=== PATIENT | male | born 1980 | race Caucasian/White ===

== ENCOUNTER → 2017-06-04 08:31 | Outpatient (CLI) | payer OTHER, SELFPAY ==
[2017-06-04 10:48] LABS: AST(SGOT) 25 U/L (15-37); Alanine Aminotransfer ALT/SGPT 46 U/L (16-61); Alkaline Phosphatase 72 U/L (45-117); Anion Gap 10 (5-15); BUN 12 mg/dL (7-18); BUN/Creat Ratio 14.7 RATIO (10-20); Calcium,Total 8.9 mg/dL (8.5-10.1); Chloride 104 mmol/L (98-107); Creatinine, Serum 0.82 mg/dL (0.70-1.30); EST Glomerular Filtration Rate 112 mL/min (>60); Est Glom Filt Rate - Afr Amer 135 mL/min (>60); Glucose 89 mg/dL (74-106); Potassium 3.9 mmol/L (3.5-5.1); Sodium Level 139 mmol/L (136-145)
== END ==
PROVIDERS: Family Provider Family Medicine; PCP Family Medicine; Visit Provider Family Medicine
DX: I10 Essential (primary) hypertension (principal)
CPT/HCPCS: 36415; 80053

== ENCOUNTER → 2018-06-03 08:25 | Outpatient (CLI) | payer BC, SELFPAY ==
[2018-06-03 10:12] LABS: ALB/GLOB Ratio 1.3 RATIO (0.9-2.4); AST(SGOT) 25 U/L (15-37); Alanine Aminotransfer ALT/SGPT 51 U/L (16-61); Albumin, Serum 4.3 g/dL (3.2-5.0); Alkaline Phosphatase 78 U/L (45-117); Anion Gap 10 (5-15); BUN 18 mg/dL (7-18); BUN/Creat Ratio 21.7 RATIO (10-20); Chloride 107 mmol/L (98-107); Cholesterol 141 mg/dL (200); Creatinine, Serum 0.83 mg/dL (0.70-1.30); EST Glomerular Filtration Rate 110 mL/min (>60); Est Glom Filt Rate - Afr Amer 132 mL/min (>60); Globulin 3.4 g/dL (2.2-4.2); Glucose 90 mg/dL (74-106); High Density Lipoprotein 30 mg/dL; Potassium 4.1 mmol/L (3.5-5.1); Protein, Total 7.7 g/dL (6.4-8.2); Sodium Level 141 mmol/L (136-145); Triglycerides 85 mg/dL; Very Low Density Lipoprotein 17 mg/dL (5-40)
== END ==
PROVIDERS: Family Provider Family Medicine; PCP Family Medicine; Referring Provider Family Medicine; Visit Provider Family Medicine
DX: Z00.00 Encounter for general adult medical examination without abnormal findings (principal)
CPT/HCPCS: 36415; 80053; 80061

== ENCOUNTER → 2019-09-16 09:11 | Outpatient (CLI) | payer BC, SELFPAY ==
[2019-09-16 10:39] LABS: Vitamin D,25 Hydroxy 25.7 ng/mL
[2019-09-16 10:49] LABS: Anion Gap 5 (5-15); BUN 17 mg/dL (7-18); BUN/Creat Ratio 19.7 RATIO (10-20); Calcium,Total 9.2 mg/dL (8.5-10.1); Chloride 110 mmol/L (98-107); Cholesterol 158 mg/dL (200); Creatinine, Serum 0.86 mg/dL (0.70-1.30); EST Glomerular Filtration Rate 104 mL/min (>60); Est Glom Filt Rate - Afr Amer 125 mL/min (>60); Glucose 105 mg/dL (74-106); High Density Lipoprotein 33 mg/dL; Sodium Level 139 mmol/L (136-145); Triglycerides 81 mg/dL; Very Low Density Lipoprotein 16 mg/dL (5-40)
== END ==
PROVIDERS: PCP Family Medicine; Referring Provider Family Medicine; Visit Provider Family Medicine
DX: Z00.00 Encounter for general adult medical examination without abnormal findings (principal)
CPT/HCPCS: 36415; 80048; 80061; 82306

== ENCOUNTER → 2020-02-04 13:25 | Outpatient (CLI) | payer BC, SELFPAY ==
[2020-02-04 15:47] LABS: Thyroid Stim Hormone (TSH) 2.07 uIU/mL (0.358-3.74)
== END ==
PROVIDERS: PCP Family Medicine; Referring Provider Family Medicine; Visit Provider Family Medicine
DX: E66.9 Obesity, unspecified (principal)
CPT/HCPCS: 36415; 84443

== ENCOUNTER 2020-04-23 11:31 | Emergency (ER) | payer BC, SELFPAY ==
[2020-04-23 11:32] VITALS: BP 134/93; PULSE 98; RESP 16; TEMP 35.8; O2SAT 99; BMI 37.3
--- NOTE | 2020-04-23 11:52 | ED.VIS.GEN ---
History of Present Illness Chief Complaint: Bite Narrative: Patient is a 39-year-old male who presents with a dog bite to the left hand. This is his past. Family estimates the dog's weight at 110 to 140 pounds. It occurred about 2 hours before presentation here to the emergency department. Patient is uncertain of his last tetanus immunization. He has small puncture wounds to the back of his hand and a laceration to the palm. He was initially seen at the urgent care but due to a lot of pain at the base of the hand it was sent over for for further evaluation. He otherwise has recently been well. He is not diabetic. No numbness tingling or weakness. Past Medical History - Allergies and Home Meds Allergies/Adverse Reactions: Allergies No Known Allergies Allergy (Verified 04/23/20 11:32) Primary Care Physician: Tay Medel MD [Primary Care Provider] - Past Medical History: - - Hypertension, hyperlipidemia, GERD Review of Systems All systems negative except as indicated General: Denies: Fever Eyes: Denies: Visual changes - bilaterally ENT: Denies: Bilateral ear pain Cardiovascular: Denies: Chest pain Respiratory: Denies: Dyspnea Musculoskeletal: Reports: Extremity Pain Skin: Denies: Rash Neurological: Denies: Headache Hematologic: Denies: Easy bruising Allergy: Denies: Uticaria Physical Exam Vital Signs/Narrative: Vital Signs Temp Pulse Resp BP Pulse Ox 04/23/20 11:32 96.4 F L 98 16 134/93 H 99 Inital Vital Signs reviewed: Yes General: Well nourished Head: Normocephalic Eyes: EOMI ENT: Moist mucous membranes Neck: Supple Cardiovascular: Regular rate Respiratory: No distress Extremities: - - Patient has 2 small puncture wounds on the back of the left hand. Center of the palm there is an approximately 2 cm laceration. This is not gaping. No active bleeding. Patient does have tenderness at thenar eminence no bony deformity brisk capillary refill normal sensation normal motor function Skin: Normal color Neurological: Alert Psychological: Normal affect Diagnostic/Tx/Re-eval Impressions Hand X-Ray 04/23/20 11:55 IMPRESSION: Unremarkable x-ray examination of the hand. Electronically Signed: Javon Jackson MD at 12:17 EST Tel , Service support , 04/23/20 11:55 Hand Min 3 Views [RAD] Stat - Medical Decision Making 3 view left hand x-ray was obtained. On my interpretation the shows no fracture. This was read by radiology who agrees. Wounds were cleansed and dressed by nursing staff. Patient's tetanus immunization was updated. Patient prescribed prophylactic Augmentin. He was advised on wound care. He understands to return for new or worsening symptoms and was advised on signs and symptoms to monitor for and the patient was discharged. ED Disposition - Plan for ED Patient: Disposition: Home or Assisted Living Diagnosis: Dog bite, hand Instructions: ED Dog Bite Prescriptions: Amox/Clavulanate Tablet [Augmentin Tablet] 875 mg PO Q12H #20 tab Transmission Status: Pending to [id number] Referrals: Tay Medel MD [Primary Care Provider] -
--- NOTE | 2020-04-23 11:55 | RAD_ITS ---
STUDY: X-RAY - LEFT HAND REASON FOR EXAM: Male, 39 years old. Dog bite to left hand TECHNIQUE: 3 view(s) of the hand. COMPARISON: None. FINDINGS: Normal radiocarpal articulation. Normal distal radioulnar joint. Normal visualized carpal bones. Normal carpal articulations Normal carpometacarpal articulation of the thumb. Normal second through fifth carpometacarpal joints. Normal metacarpi. Normal metacarpophalangeal joint of the thumb. Normal interphalangeal joint of the thumb. Normal proximal and distal phalanges of the thumb. Normal metacarpophalangeal joints of the second through fifth fingers. Normal proximal and distal interphalangeal joints of the second through fifth fingers. Normal phalanges of the second through fifth fingers. Focal sclerosis of the distal phalanx of the third finger. The soft tissue structures are unremarkable. RAD/Hand Min 3 Views IMPRESSION: Unremarkable x-ray examination of the hand. Electronically Signed: Javon Jackson MD at 12:17 EST Tel , Service support ,
[2020-04-23 12:12] VITALS: RESP 18
[2020-04-23] MEDS: Diphth,Pertuss(Acell),Tet Vac 0.5 ML Vial IM (12:16)
[2020-04-23 12:32] VITALS: RESP 18
== END 2020-04-23 12:42 | disposition home or self-care (01) ==
PROVIDERS: Emergency Provider Emergency Medicine; PCP Family Medicine
DX: S61.452A Open bite of left hand, initial encounter (principal); W54.0XXA Bitten by dog, initial encounter
CPT/HCPCS: 73130; 90715; 96372; 99283

== ENCOUNTER → 2020-06-19 06:36 | Outpatient (CLI) | payer BC, SELFPAY ==
--- NOTE | 2020-06-21 09:13 | STRESSREP_ITS ---
Stress Test Report Date: 06/19/20 Procedure: Exercise tolerance test/imaging study Indications: chest pain Consent: Per the patient Procedure: The patient exercised on a Jose protocol for 7 minutes and 12 seconds achieving a peak heart rate of 176 bpm (98% predicted maximal heart rate) with a peak blood pressure 180/72 mmHg and a peak MET capacity of 8.8 METs. The baseline ECG demonstrated normal sinus rhythm. The peak exercise ECG demonstrated sinus tachycardia with no significant ischemic changes. EKG during recovery revealed no significant ischemic changes [There were no cardiac dysrhythmias pretest, during exercise, or recovery]. The functional capacity was considered normal for age. There was [no complaint of chest discomfort during exercise or recovery]. The examination was discontinued secondary to shortness of breath. Impression: 1. Technically adequate (percent predicted maximal heart rate greater than 85%) exercise tolerance test 2. Stress test is negative for exercise-induced EKG changes of ischemia 3. The test test is negative for exercise-induced chest pain 4. Functional capacity is normal for age 5. Nuclear images pending Myocardial perfusion imaging study: Technique: The patient was injected with 9.7 mCi of technetium 99m Cardiolite and subsequently rest SPECT Cardiolite nuclear imaging was obtained in the horizontal long, vertical long, and short axis views. The patient exercised on a Jose protocol. Please see above for details. The patient was injected with 32.8 mCi of technetium 99m Cardiolite and subsequently stress SPECT Cardiolite nuclear imaging was obtained in the horizontal long, vertical long, and short axis views. A gated Cardiolite study at peak stress was obtained. Interpretation: Rest and stress SPECT Cardiolite nuclear imaging status post realignment, normalization, and attenuation correction, demonstrates normal myocardial radioisotope uptake. The gated Cardiolite study demonstrates no significant regional wall motion abnormalities. The reported LVEF is greater than 70%. Impression: 1. There is no evidence of significant ischemia or infarction. 2. The gated Cardiolite study reports an LVEF of greater than 70%. This note was generated with [employer] software. It may contain incorrect words, spelling, and punctuation that were not noted in checking the note before signing.
== END ==
PROVIDERS: PCP Family Medicine; Referring Provider Family Medicine; Visit Provider Family Medicine
DX: R07.9 Chest pain, unspecified (principal)
CPT/HCPCS: 78452; 93017; A9500; A4216

== ENCOUNTER 2020-07-22 12:58 | Emergency (ER) | payer BC, SELFPAY ==
[2020-07-22 12:59] VITALS: BP 143/7; PULSE 120; RESP 18; TEMP 36.4; O2SAT 95; BMI 37.1
--- NOTE | 2020-07-22 13:28 | ED.VIS.LOWEX ---
HPI History of Present Illness Chief Complaint: Lower Extremity Injury Detail of Chief Complaint: Patient with right calf pain at started today Informant: patient Occured/Mechanism Comment: Patient believes that he may have jumped up to cheer winning a soccer game when he had sudden onset of pain. 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 Patient thinks that he may have jumped up to celebrate and its possible someone may of kicked him in the right calf because it felt like somebody kicked him in the calf. Patient now having a hard time walking and bearing weight secondary to pain. PFSH PFSH Home Medications amoxicillin-pot clavulanate 875 mg PO Q12H #20 tab 04/23/20 [Rx Last Taken Unknown] Allergy/AdvReac Type Severity Reaction Status Date / Time No Known Allergies Allergy Verified 07/22/20 12:59 Social History Smoking Status: Never smoker ROS ROS ED Constitutional Constitutional ED: Reports systems reviewed and no addt'l complaints, except as documented; Denies body ache(s), change in weight or chills Eyes Eyes: Denies acute decrease in peripheral vision, change in vision, double vision or loss of vision ENT ENT ED: Reports none; Denies ear pain, lip swelling, loss taste/smell, neck pain, otalgia or sore throat Cardiovascular Cardiovascular: Reports none; Denies abdominal pain, chest pain with activity, leg edema, lightheadedness, palpitations, rapid heart rate or syncope Respiratory/Chest Respiratory/Chest: Reports none; Denies change in mental status, dry cough, dyspnea, hemoptysis, shortness of breath at rest or shortness of breath with exertion Gastrointestinal Gastrointestinal: Reports none; Denies abdominal pain, change in stool character, diarrhea, hematemesis, hematochezia, melena, rectal bleeding or vomiting Genitourinary Genitourinary ED: Reports none; Denies abdominal discomfort, anuria, dysuria, genital pain or polyuria Musculoskeletal Musculoskeletal: Reports none and other Details: Right calf pain ; Denies arthralgias, back pain, difficulty walking, extremity pain, muscle weakness or myalgias Integumentary Reports none; Denies abscess or rash Neurologic Neurologic: Reports none; Denies abnormal gait, confusion, focal weakness, frequent falls, headache(s), loss of vision, numbness, paresthesias, radicular pain, vertigo or weakness Psychiatric Psychiatric: Reports systems reviewed and no addt'l complaints, except as documented and none; Denies behavioral changes, confusion, difficulty concentrating, hallucinations, suicidal ideation, tactile hallucinations or visual hallucinations Endocrine Endocrinology: Denies none, cold intolerance, excessive sweating, fatigue or heat intolerance Hematologic/Lymphatic Hematologic/Lymphatic: Reports none; Denies anemia, easy bleeding or easy bruising Allergic/Immunologic Allergic/Immunologic ED: Denies as per HPI, none, lip swelling, mouth swelling, throat swelling, tongue swelling or hives EXAM Physical Exam Const Vital Signs: 07/22/20 12:59 Temperature 97.5 F L Temperature Source Temporal Pulse Rate 120 H Respiratory Rate 18 Blood Pressure 143/7 H Blood Pressure Mean 52 Pulse Ox 95 Oxygen Delivery Method Room Air Positive well nourished and well developed General Appearance ED: well developed and NAD HEENT Reports TM's clear and moist mucous membranes normocephalic and atraumatic; Negative for trauma or tenderness Tympanic Membrane ED: Yes TM's clear Eyes PERRL and EOMs intact bilaterally General Eye ED: Negative for pale conjunctiva or scleral icterus Neck no lymphadenopathy, supple and no JVD General: Negative for tenderness Chest Wall inspection of chest normal and palpation of chest normal Chest: Negative for tenderness Resp normal respiratory effort and clear to auscultation bilaterally Effort and Inspection: Negative for respiratory distress or pain with movement Auscultation: Negative for rhonchi, wheezes or diminished lung sounds Cardio regular rate, regular rhythm, S1 normal heart sound, S2 normal heart sound and no murmurs Peripheral Pulses: pulses 2+ throughout GI normal to inspection, nondistended, normoactive bowel sounds, soft to palpation, non-tender, non-distended and no masses Back/Spine no CVA tenderness and no thoracic nor lumbar tenderness Extremity Extremity Narrative: Patient presents to the emergency department with tenderness over the right calf. No significant swelling noted. There is no ecchymosis or bruising. Patient has a negative Foy's test. I do not palpate any defect in the Achilles tendon. Patient does have some mid posterior calf tenderness that reproduces his pain. He has no bony tenderness over the tibia or fibula. Patient has normal range of motion at the knee and ankle. He is neurovascular intact. General Extremety ED: Negative for edema General Extremity: Negative for edema Neuro oriented x3, CN's II-XII intact bilaterally, no sensory deficits noted and gait normal Sensorium / Orientation: awake, alert, oriented to person, oriented to place and oriented to time Motor Exam: strength 5/5 throughout and strength abnormal Psych mental status grossly normal Skin no rashes or lesions noted and no wounds MDM MDM MDM Narrative Medical decision making narrative: I do not feel patient requires any type of imaging. I suspect he likely has a muscle strain of his calf. I do not feel he has an Achilles injury. Patient will be given crutches and an Geovani wrap and referral to orthopedics for follow-up. Discharge Plan Triage Chief Complaint: Lower Extremity Injury ED Provider: Terrie Castillo Dx/Rx/DC Orders Clinical Impression: Strain of calf muscle Instructions: ED Muscle Strain, Extremity Prescriptions: No Action amoxicillin-pot clavulanate 875 MG tablet 875 mg PO Q12H Qty: 20 RF: 0 Primary Care Provider: Tay Medel Referrals: Ehsan Alfaro DO [STAFF PHYSICIAN] - 3-5 Days Tay Medel MD [Primary Care Provider] -
== END 2020-07-22 13:55 | disposition home or self-care (01) ==
LOC: ED 13:36
PROVIDERS: Emergency Provider Emergency Medicine; PCP Family Medicine
DX: S86.911A Strain of unspecified muscle(s) and tendon(s) at lower leg level, right leg, initial encounter (principal); X58.XXXA Exposure to other specified factors, initial encounter
CPT/HCPCS: 99283

== ENCOUNTER → 2020-10-04 09:09 | Outpatient (CLI) | payer BC, SELFPAY ==
[2020-10-04 10:58] LABS: Anion Gap 5 (5-15); BUN 17 mg/dL (7-18); BUN/Creat Ratio 19.5 RATIO (10-20); Calcium,Total 8.7 mg/dL (8.5-10.1); Chloride 107 mmol/L (98-107); Cholesterol 145 mg/dL (200); Creatinine, Serum 0.87 mg/dL (0.70-1.30); EST Glomerular Filtration Rate 102 mL/min (>60); Est Glom Filt Rate - Afr Amer 123 mL/min (>60); Glucose 99 mg/dL (74-106); High Density Lipoprotein 30 mg/dL; Potassium 4.3 mmol/L (3.5-5.1); Sodium Level 141 mmol/L (136-145); Triglycerides 143 mg/dL; Very Low Density Lipoprotein 29 mg/dL (5-40)
== END ==
PROVIDERS: PCP Family Medicine; Referring Provider Family Medicine; Visit Provider Family Medicine
DX: I10 Essential (primary) hypertension (principal)
CPT/HCPCS: 36415; 80048; 80061

== ENCOUNTER 2021-04-11 08:30 | Outpatient (CLI) | payer BC, SELFPAY ==
[2021-04-11 10:39] LABS: Anion Gap 8 (5-15); BUN 14 mg/dL (7-18); BUN/Creat Ratio 16.2 RATIO (10-20); Chloride 108 mmol/L (98-107); Cholesterol 149 mg/dL (200); Creatinine, Serum 0.86 mg/dL (0.70-1.30); EST Glomerular Filtration Rate 103 mL/min (>60); Est Glom Filt Rate - Afr Amer 124 mL/min (>60); Glucose 104 mg/dL (74-106); High Density Lipoprotein 32 mg/dL; Potassium 3.9 mmol/L (3.5-5.1); Sodium Level 139 mmol/L (136-145); Triglycerides 104 mg/dL; Very Low Density Lipoprotein 21 mg/dL (5-40)
== END 2021-04-11 23:59 | disposition home or self-care (01) ==
LOC: MFPLAB 08:32
PROVIDERS: PCP Family Medicine; Referring Provider Family Medicine; Visit Provider Family Medicine
DX: E78.00 Pure hypercholesterolemia, unspecified (principal); I10 Essential (primary) hypertension
CPT/HCPCS: 36415; 80048; 80061

== ENCOUNTER → 2021-10-12 | Outpatient (CLI) | payer BC, SELFPAY ==
[2021-10-12 17:54] LABS: Anion Gap 6 (5-15); BUN 10 mg/dL (7-18); BUN/Creat Ratio 11.4 RATIO (10-20); Calcium,Total 9.1 mg/dL (8.5-10.1); Chloride 104 mmol/L (98-107); Cholesterol 150 mg/dL (200); Creatinine, Serum 0.88 mg/dL (0.70-1.30); EST Glomerular Filtration Rate 101 mL/min (>60); Est Glom Filt Rate - Afr Amer 122 mL/min (>60); Glucose 88 mg/dL (74-106); High Density Lipoprotein 31 mg/dL; Potassium 3.6 mmol/L (3.5-5.1); Sodium Level 137 mmol/L (136-145); Triglycerides 136 mg/dL; Very Low Density Lipoprotein 27 mg/dL (5-40)
== END | disposition home or self-care (01) ==
LOC: MFPLAB 15:31
PROVIDERS: PCP Family Medicine; Referring Provider Family Medicine; Visit Provider Family Medicine
DX: I10 Essential (primary) hypertension (principal)
CPT/HCPCS: 36415; 80048; 80061

== ENCOUNTER 2022-07-12 04:32 | Emergency (ER) | payer OTHER, SELFPAY ==
[2022-07-12 04:33] VITALS: BP 144/90; PULSE 81; RESP 18; TEMP 36.6; O2SAT 98; BMI 38.2
--- NOTE | 2022-07-12 04:47 | CT_ITS ---
EXAM: CT ABDOMEN AND PELVIS WITHOUT INTRAVENOUS CONTRAST CLINICAL INDICATION: Kidney Stone TECHNIQUE: Helically acquired images were obtained of the abdomen and pelvis without intravenous contrast. This CT exam was performed using one or more of the following dose reduction techniques: automated exposure control, adjustment of the mA and/or kV according to patient size, and/or use of iterative reconstruction technique. COMPARISON: No relevant prior studies available. FINDINGS: LOWER THORAX: Unremarkable. Lung bases are clear. No cardiomegaly. No significant pericardial effusion. ABDOMEN: LIVER: Hepatomegaly with fatty infiltration. GALLBLADDER AND BILE DUCTS: Unremarkable. No calcified gallstones. No gallbladder distention or wall edema. No intra- or extrahepatic biliary ductal dilation. PANCREAS: Unremarkable. No focal cystic mass. SPLEEN: Unremarkable. Normal size without focal cystic or solid mass. ADRENALS: Unremarkable. No nodules. KIDNEYS AND URETERS: Small nonobstructing stones in the kidneys, the largest measuring 4 mm on the left. Normal renal size and position. STOMACH AND BOWEL: Unremarkable. No stomach or bowel distention. No focal inflammatory change. PELVIS: APPENDIX: The appendix is normal. BLADDER: Unremarkable. REPRODUCTIVE: Unremarkable as visualized. No mass. ABDOMEN and PELVIS: INTRAPERITONEAL SPACE: Unremarkable. No ascites or other fluid collection. No free air. BONES/JOINTS: Unremarkable. No suspicious lytic or blastic abnormality. SOFT TISSUES: Unremarkable. No discrete abdominal or pelvic wall hernia. VASCULATURE: Unremarkable. Abdominal aorta is non-dilated. LYMPH NODES: Unremarkable. No enlarged lymph nodes. CT/Abdomen/Pelvis without Cont IMPRESSION: 1. Small nonobstructing stones in the kidneys, the largest measuring 4 mm on the left. No ureteral stone or renal obstruction. 2. Hepatomegaly with fatty infiltration. Electronically Signed: Bruce Aguero MD at 5:50 EDT ,
--- NOTE | 2022-07-12 04:47 | EX.ED.DYSGE1 ---
HPI History of Present Illness Chief Complaint: Flank Pain Informant: patient Onset/Context/Timing Onset: Today Context: Sudden Onset Timing: Intermittent Current Severity: Mild Maximum Severity: Severe Narrative Narrative: Patient presents with intermittent left flank pain for the last 4 hours. He states he was woken from sleep around 3 AM with left flank pain. He William urinated and had a bowel movement. Just before he went back to bed he had severe pain again. Pain has been fluctuating since that time. He did take 2 [id number] tabs of ibuprofen prior to arrival. [facility] Medical History Hyperlipemia Hypertension Home Medications atorvastatin 10 mg tablet 10 mg PO QHS 07/12/22 [History Last Taken Unknown] lisinopril 20 mg tablet 20 mg PO QHS 07/12/22 [History Last Taken Unknown] Allergy/AdvReac Type Severity Reaction Status Date / Time No Known Allergies Allergy Verified 07/12/22 04:36 Social History Smoking Status: Never smoker ROS ROS ED Constitutional Constitutional ED: Denies chills or fever(s) Eyes Eyes: Denies discharge from eye(s) ENT ENT ED: Denies discharge from eye(s), rhinorrhea or sore throat Cardiovascular Cardiovascular: Denies chest pain Respiratory/Chest Respiratory/Chest: Denies cough or dyspnea Gastrointestinal Gastrointestinal: Reports abdominal pain, nausea and vomiting Genitourinary Genitourinary ED: Reports urinary frequency; Denies difficulty urinating or dysuria Musculoskeletal Musculoskeletal: Reports back pain; Denies extremity pain Integumentary Denies Abrasions or rash Neurologic Neurologic: Denies headache(s) or weakness Psychiatric Psychiatric: Denies anxiety or depression Allergic/Immunologic Allergic/Immunologic ED: Denies lip swelling or urticaria EXAM Physical Exam Const Vital Signs: 07/12/22 04:33 Temperature 97.8 F Temperature Source Temporal Pulse Rate 81 Respiratory Rate 18 Blood Pressure 144/90 H Blood Pressure Mean 108 Pulse Ox 98 Oxygen Delivery Method Room Air Positive well nourished and well developed General Appearance ED: well developed HEENT Reports normocephalic and head/scalp atraumatic Eyes PERRL and EOMs intact bilaterally Neck supple Chest Wall inspection of chest normal and palpation of chest normal Resp normal respiratory effort and clear to auscultation bilaterally Cardio regular rate and regular rhythm GI non-tender Auscultation: hypoactive bowel sounds Palpation: soft Back/Spine General Back: CVA tenderness left Extremity normal to inspection Neuro oriented x3 and no sensory deficits noted Sensorium / Orientation: alert Motor Exam: strength 5/5 throughout Psych mental status grossly normal Skin no rashes or lesions noted MDM MDM MDM Narrative Medical decision making narrative: Patient was given morphine, Toradol, Zofran, IV fluids. Labwork obtained to evaluate for leukocytosis, anemia, and electrolyte derangement. Urinalysis obtained to evaluate for infection/hematuria. CT flank obtained to evaluate for kidney stone. Lab Data Attestation: I reviewed the patient's lab results. Labs: Laboratory Results - last 24 hr 07/12/22 07/12/22 07/12/22 04:43 04:43 05:05 WBC 13.1 H RBC 5.28 Hgb 15.9 Hct 46.8 MCV 88.6 MCH 30.1 MCHC 34.0 RDW Std Deviation 42.5 RDW Coeff of July 13.1 Plt Count 292 MPV 9.5 Immature Gran % (Auto) 0.700 Neut % (Auto) 69.4 Lymph % (Auto) 20.0 Bent % (Auto) 8.6 Eos % (Auto) 0.7 Baso % (Auto) 0.6 Absolute Neuts (auto) 9.1 H Absolute Lymphs (auto) 2.61 Nucleated RBC % 0 Sodium 138 Potassium 4.1 Chloride 106 Carbon Dioxide 25.0 Anion Gap 7 BUN 17 Creatinine 1.04 Estim Creat Clear Calc 82.65 Est GFR (MDRD) Af Amer 100 Est GFR (MDRD) Non-Af 83 BUN/Creatinine Ratio 16.3 Glucose 137 H Calcium 9.5 Urine Color Yellow Urine Clarity Clear Urine pH 5.0 Ur Specific [place] 1.025 Urine Protein 30 H Urine Glucose (UA) Normal Urine Ketones Negative Urine Occult Blood 250 H Urine Nitrite Negative Urine Bilirubin Negative Urine Urobilinogen Normal Ur Leukocyte Esterase 25 H Urine RBC 0-5 SEEN Urine WBC 0-5 SEEN Ur Squamous Epith Cells 0 SEEN Urine Bacteria RARE Urine Mucus 1+ Radiography Diagnostic Testing: Clinical Impression(s) from Imaging Studies Abdomen/Pelvis CT 07/12/22 04:47 IMPRESSION: 1. Small nonobstructing stones in the kidneys, the largest measuring 4 mm on the left. No ureteral stone or renal obstruction. 2. Hepatomegaly with fatty infiltration. Electronically Signed: Bruce Aguero MD at 5:50 EDT , Treatment and Re-Evaluation :: CBC reveals white count of 13.1 with 69% neutrophils. Chemistry studies unremarkable with normal renal function. Urinalysis does reveal 250 of blood with 0-5 RBCs. No evidence of infection. It is noted that when the patient gave his urine sample a small kidney stone was passed. CT flank at this time reveals no evidence of ureteral stone. He does have stones noted in both kidneys. On repeat evaluation patient is resting comfortably. Test results are discussed with him. He will use ibuprofen as needed for any remaining ureteral spasm that he may have over the next day or so. He will be given Dr. Hatch's number for follow-up as needed. Discharge Plan Triage Chief Complaint: Flank Pain ED Provider: Manjula Caraballo Dx/Rx/DC Orders Clinical Impression: Kidney stones Instructions: ED Kidney Stone, Passed Prescriptions: No Action atorvastatin 10 mg tablet 10 mg PO QHS lisinopril 20 mg tablet 20 mg PO QHS Label Comments: TAKE 1 TABLET BY MOUTH EVERY DAY Primary Care Provider: Tay Medel Referrals: Demetris Hatch MD [Med Staff - Active Staff] - As Needed Tay Medel MD [Primary Care Provider] - Disposition Disposition: Home, Self Care
[2022-07-12 04:58] LABS: Absolute Lymphocyte Count 2.61 X10^3/uL (0.83-4.51); Absolute Neutrophil Count 9.1 X10^3/uL (2.0-7.7); Basophil# 0.08 X10^3/uL; Basophil% 0.6 % (0-1); Eosinophil# 0.09 X10^3/uL; Eosinophils% 0.7 % (0-5); Hematocrit 46.8 % (40-54); Hemoglobin 15.9 g/dL (13.0-16.5); Lymphocyte # 2.61 X10^3/ul (0.83-4.51); Mean Corpuscular Hgb 30.1 pg (27.0-32.0); Mean Corpuscular Volume 88.6 fL (80-94); Mean Platelet Vol. 9.5 fl (6.2-12.0); Monocyte# 1.12 X10^3/uL; Monocyte% 8.6 % (0-10); NRBC Flagged by Analyzer 0 % (0-5); Neutrophil # 9.08 X10^3/uL (2.7-7.7); Neutrophil % 69.4 % (47-70); Platelet Count 292 K/mm3 (150-450); RBC Distribution Width CV 13.1 % (11.6-14.6); RBC Distribution Width SD 42.5 fl (35.1-43.9); Red Blood Count 5.28 M/mm3 (4.6-6.2); White Blood Count 13.1 K/mm3 (4.4-11.0)
[2022-07-12] MEDS: 0.9% Normal Saline 1,000 ML 250 ML IV (04:58)
[2022-07-12] MEDS: Ondansetron 4 MG/2 ML Vial IV (04:58)
[2022-07-12] MEDS: Ketorolac 15 MG/ML Vial IV (04:59)
[2022-07-12] MEDS: Morphine 4 MG/ML Syringe IV (05:00)
[2022-07-12 05:12] LABS: Squamous Epithelial Cells - UA 0 SEEN /hpf (0-5)
[2022-07-12 05:13] LABS: Color, Urine Yellow (Yellow); Glucose, Dipstick Normal (Normal); Ketone-Dipstick Negative (Negative); Leukocyte Esterase-Dipstick 25 /ul (Negative); Nitrite-Dipstick Negative (Negative); Occult Blood-Urine 250 /ul (Negative); Protein-Dipstick 30 mg/dl (Negative); Specific Gravity, Urine 1.025 (1.002-1.030); Urine Bilirubin Dipstick Negative (Negative); Urine Clarity Clear (Clear); Urine Urobilinogen Normal (Normal)
[2022-07-12 05:20] LABS: Bacteria RARE /hpf (None Seen); Mucous, Urine 1+ /hpf (<or=2+); Red Blood Cells-Urine 0-5 SEEN /hpf (0-5); White Blood Cells 0-5 SEEN /hpf (0-5)
[2022-07-12 05:22] LABS: Anion Gap 7 (5-15); BUN 17 mg/dL (7-18); BUN/Creat Ratio 16.3 RATIO (10-20); Calcium,Total 9.5 mg/dL (8.5-10.1); Chloride 106 mmol/L (98-107); Creatinine, Serum 1.04 mg/dL (0.70-1.30); EST Glomerular Filtration Rate 83 mL/min (>60); Est Glom Filt Rate - Afr Amer 100 mL/min (>60); Estimated Creatinine Clearance 82.65 ml/min; Glucose 137 mg/dL (74-106); Potassium 4.1 mmol/L (3.5-5.1); Sodium Level 138 mmol/L (136-145)
[2022-07-12 06:08] VITALS: PULSE 84; RESP 18; O2SAT 98
== END 2022-07-12 06:08 | disposition home or self-care (01) ==
PROVIDERS: Emergency Provider Emergency Medicine; PCP Family Medicine; Visit Provider Emergency Medicine
DX: N20.0 Calculus of kidney (principal); I10 Essential (primary) hypertension; E78.5 Hyperlipidemia, unspecified; Z79.899 Other long term (current) drug therapy
CPT/HCPCS: 74176; 80048; 81001; 85025; 96361; 96374; 96375; 99282; J7030; A4216; J2405

== ENCOUNTER → 2022-10-23 | Outpatient (CLI) | payer OTHER, SELFPAY ==
[2022-10-23 11:03] LABS: AST(SGOT) 25 U/L (15-37); Alanine Aminotransfer ALT/SGPT 60 U/L (16-61); Albumin, Serum 3.8 g/dL (3.2-5.0); Alkaline Phosphatase 77 U/L (45-117); Anion Gap 8 (5-15); BUN 12 mg/dL (7-18); BUN/Creat Ratio 14.5 RATIO (10-20); Chloride 104 mmol/L (98-107); Cholesterol 152 mg/dL (200); Creatinine, Serum 0.83 mg/dL (0.70-1.30); EST Glomerular Filtration Rate 107 mL/min (>60); Est Glom Filt Rate - Afr Amer 130 mL/min (>60); Glucose 106 mg/dL (74-106); High Density Lipoprotein 31 mg/dL; Potassium 3.9 mmol/L (3.5-5.1); Protein, Total 7.8 g/dL (6.4-8.2); Sodium Level 137 mmol/L (136-145); Thyroid Stim Hormone (TSH) 1.98 uIU/mL (0.358-3.74); Triglycerides 119 mg/dL; Very Low Density Lipoprotein 24 mg/dL (5-40)
== END | disposition home or self-care (01) ==
LOC: MFPLAB 08:48
PROVIDERS: PCP Family Medicine; Visit Provider Family Medicine
DX: Z00.00 Encounter for general adult medical examination without abnormal findings (principal); E66.9 Obesity, unspecified
CPT/HCPCS: 36415; 80053; 80061; 84403; 84443

== ENCOUNTER → 2023-10-23 | Outpatient (CLI) | payer OTHER, SELFPAY ==
[2023-10-23 11:33] LABS: ALB/GLOB Ratio 0.9 RATIO (0.9-2.4); AST(SGOT) 24 U/L (15-37); Alanine Aminotransfer ALT/SGPT 54 U/L (16-61); Albumin, Serum 3.9 g/dL (3.2-5.0); Alkaline Phosphatase 76 U/L (45-117); Anion Gap 9 (5-15); BUN 14 mg/dL (7-18); BUN/Creat Ratio 16.5 RATIO (10-20); Calcium,Total 9.7 mg/dL (8.5-10.1); Chloride 106 mmol/L (98-107); Cholesterol 146 mg/dL (200); Creatinine, Serum 0.85 mg/dL (0.70-1.30); EST Glomerular Filtration Rate 104 mL/min (>60); Est Glom Filt Rate - Afr Amer 126 mL/min (>60); Globulin 4.3 g/dL (2.2-4.2); Glucose 108 mg/dL (74-106); High Density Lipoprotein 33 mg/dL; Potassium 3.9 mmol/L (3.5-5.1); Protein, Total 8.2 g/dL (6.4-8.2); Sodium Level 137 mmol/L (136-145); Triglycerides 129 mg/dL; Very Low Density Lipoprotein 26 mg/dL (5-40)
== END | disposition home or self-care (01) ==
PROVIDERS: PCP Family Medicine; Visit Provider Family Medicine
DX: I10 Essential (primary) hypertension (principal)
CPT/HCPCS: 36415; 80053; 80061

== ENCOUNTER 2024-07-23 08:14 | Day surgery (SDC) | payer OTHER, SELFPAY ==
--- NOTE | 2024-07-21 16:05 | PAT.ANE_ITS ---
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 When Was Last Pacemaker Check QUESTION #4 FULL TEXT: You/Your Family Experience fever (hyperthermia) with Anesthesia Last Oral Intake Last Oral intake: Last Oral Intake NPO since Meds taken in AM with sips of water? Meds patient instructed to take am of surgery PONV PONV - metal furnace operator: PONV - metal furnace operator Female No 07/21/24 14:19 HX of Motion Sickness Yes 07/21/24 14:19 HX of N/V After Surgery No 07/21/24 14:19 Non-Smoker Yes 07/21/24 14:19 Duration of Surgery greater No 07/21/24 14:19 than 60 minutes Number of Risk Factors 2 07/21/24 14:19 PONV Score Moderate Risk 07/21/24 14:19 Height & Weight Height & Weight: Anesthesia: Height & Weight Height 5 ft 6 in 05/11/24 14:54 Respiratory Assessment Respiratory Assessment - metal furnace operator: Respiratory Tract Infection Hx - metal furnace operator Hx Respiratory Tract Infection No 07/21/24 14:19 STOP Sleep Apnea STOP Sleep Apnea - metal furnace operator: STOP Sleep Apnea - metal furnace operator Hx Hypertension Yes: CONTROLLED ON MED 07/21/24 14:19 Hx Sleep Apnea No 07/21/24 14:19 CPAP BIPAP Do you snore loudly (louder Yes 07/21/24 14:19 than talking or can be heard Do you often feel tired/ No 07/21/24 14:19 fatigued/ sleepy during daytime? Has anyone observed you stop No 07/21/24 14:19 breathing during sleep? STOP Results Positive 07/21/24 14:19 QUESTION #5 FULL TEXT : Do you snore loudly (louder than talking or can be heard through closed doors)? 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 Specify any problems Hx of Preganancy in last 3 N/A 07/21/24 14:19 Months Nurse Filling Out Transfusion VCHRISTIN 07/21/24 14:19 & Questions: Date: 07/21/24 07/21/24 14:19 Time: 14:20 07/21/24 14:19 Patient unable to answer at this time (ie. confused, unrespo /Reproduction History /Reproductive History - metal furnace operator: /Reproductive Hx- metal furnace operator Hx Now Gestational Age (in weeks): EDC: Hx Hx Para Hx Section SAB PFSH Medical History (Updated 07/21/24 @ 14:18 by Alyssa Rodriguez) Wears contact lenses Wears glasses Gastric reflux Non-smoker History of stress test Hyperlipemia Hypertension Home Medications ?Medication ?Instructions ?Recorded ?Last Taken ?Type atorvastatin 10 mg tablet 10 mg PO QHS 07/12/22 Unknow n History lisinopril 20 mg tablet 20 mg PO QHS 07/12/22 Unknow n History Allergy/AdvReac Type Severity Reaction Status Date / Time No Known Allergies Allergy Verified 07/21/24 14:13 Surgical History (Updated 07/21/24 @ 14:18 by Alyssa Rodriguez) History of esophagogastroduodenoscopy (EGD) Hx of wisdom tooth extraction Social History (Updated 05/11/24 @ 14:52 by Irma Dhaliwal) household members: spouse current occupational status: employed Smoking Status: Never smoker Audit: Pertinent Findings Pertinent Findings Stress test pertinent findings: 06/19/2020. No evidence of ischemia or infarction. EF 70%. Recommendation Anesthesia Recommendation Anesthesia recommendation: OPTIMIZED for anesthesia
[2024-07-23] VITALS (7 sets, daily range): BP systolic 114–136; BP diastolic 77–97; PULSE 74–91; RESP 14–18; TEMP 36.4–36.6; O2SAT 96–99; BMI 39.8
--- NOTE | 2024-07-23 08:29 | PRE.ANES_ITS ---
ASA Classification* ASA Classification ASA Classification: 2 Assessment & Plan Anesthesia* Anesthesia Assessment Anesthesia Assessment: Discussed sedation and/or anesthesia options, risks, benefits, and alternatives with patient/parents/legal guardian/POA. Questions invited. The patient/parents/legal guardian/POA seems to understand and agrees to proceed with anesthesia plan. Reviewed the physical assessment, medical history, allergy history and patient home medications list prior to surgery/procedure/anesthetic and documented any changes. Performed airway and anesthesia risk assessments. Anesthesia Type Anesthesia Type: MAC Anesthesia Focused Assessment* Airway Assessment Mouth opens: >3 cm Mallampati Score: II Focused Labs Anesthesia Preop lab: CBC WBC 13.1 K/mm3 (4.4-11.0) H 07/12/22 04:43 3 RBC 5.28 M/mm3 (4.6-6.2) 07/12/22 04:43 07/12/22 Hgb 15.9 g/dL (13.0-16.5) 07/12/22 04:43 07/12/22 Hct 46.8 % (40-54) 07/12/22 04:43 07/12/22 Plt Count 292 K/mm3 (150-450) 07/12/22 04:43 07/12/22 CHEMISTRY Potassium 3.9 mmol/L (3.5-5.1) 10/23/23 08:41 10/23/23 Sodium 137 mmol/L (136-145) 10/23/23 08:41 10/23/23 BUN 14 mg/dL (7-18) 10/23/23 08:41 10/23/23 Creatinine 0.85 mg/dL (0.70-1.30) 10/23/23 08:41 10/23/23 Glucose 108 mg/dL (74-106) H 10/23/23 08:41 10/23/23 TSH 1.98 uIU/mL (0.358-3.74) 10/23/22 08:49 COAG Pre-Assessment Diagnosis/Proposed Procedure Planned Operative Procedure(s): Colonoscopy OA Anesthesia History 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 When Was Last Pacemaker Check QUESTION #4 FULL TEXT: You/Your Family Experience fever (hyperthermia) with Anesthesia Last Oral Intake Last Oral intake: Last Oral Intake NPO since Meds taken in AM with sips of water? Meds patient instructed to take am of surgery PONV PONV - aircraft engine specialist: PONV - aircraft engine specialist Female No 07/21/24 14:19 HX of Motion Sickness Yes 07/21/24 14:19 HX of N/V After Surgery No 07/21/24 14:19 Non-Smoker Yes 07/21/24 14:19 Duration of Surgery greater No 07/21/24 14:19 than 60 minutes Number of Risk Factors 2 07/21/24 14:19 PONV Score Moderate Risk 07/21/24 14:19 Height & Weight Height & Weight: Anesthesia: Height & Weight Height 5 ft 6 in 05/11/24 14:54 Respiratory Assessment Respiratory Assessment - aircraft engine specialist: Respiratory Tract Infection Hx - aircraft engine specialist Hx Respiratory Tract Infection No 07/21/24 14:19 STOP Sleep Apnea STOP Sleep Apnea - aircraft engine specialist: STOP Sleep Apnea - aircraft engine specialist Hx Hypertension Yes: CONTROLLED ON MED 07/21/24 14:19 Hx Sleep Apnea No 07/21/24 14:19 CPAP BIPAP Do you snore loudly (louder Yes 07/21/24 14:19 than talking or can be heard Do you often feel tired/ No 07/21/24 14:19 fatigued/ sleepy during daytime? Has anyone observed you stop No 07/21/24 14:19 breathing during sleep? STOP Results Positive 07/21/24 14:19 QUESTION #5 FULL TEXT : Do you snore loudly (louder than talking or can be heard through closed doors)? 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 Specify any problems Hx of Preganancy in last 3 N/A 07/21/24 14:19 Months Nurse Filling Out Transfusion VCHRISTIN 07/21/24 14:19 & Questions: Date: 07/21/24 07/21/24 14:19 Time: 14:20 07/21/24 14:19 Patient unable to answer at this time (ie. confused, unrespo /Reproduction History /Reproductive History - aircraft engine specialist: /Reproductive Hx- aircraft engine specialist Hx Now Gestational Age (in weeks): EDC: Hx Hx Para Hx Section SAB Active Medications Active Medications: Current Medications Generic Name Dose Route Start Last Admin Trade Name Freq PRN Reason Stop Dose Admin Lactated Ringer's 1,000 mls @ 15 mls/hr 07/23/24 08:30 IV .Q48H ASHLEY PFSH Medical History Wears contact lenses Wears glasses Gastric reflux Non-smoker History of stress test Hyperlipemia Hypertension Home Medications ?Medication ?Instructions ?Recorded ?Last Taken ?Type atorvastatin 10 mg tablet 10 mg PO QHS 07/12/22 Unknow n History lisinopril 20 mg tablet 20 mg PO QHS 07/12/22 Unknow n History Allergy/AdvReac Type Severity Reaction Status Date / Time No Known Allergies Allergy Verified 07/23/24 08:22 Surgical History History of esophagogastroduodenoscopy (EGD) Hx of wisdom tooth extraction Social History household members: spouse current occupational status: employed Smoking Status: Never smoker Review of Systems (Anesthesia) ROS Narrative System reviewed and no additional complaints, except as documented.
[2024-07-23] MEDS: Lactated Ringers 1,000 ML 15 ML IV (08:39)
--- NOTE | 2024-07-23 09:00 | H&P.OPEN ---
HPI - General HPI Narrative OLGA LIDIA IBARRA, is a 43 M who presents for screening colonoscopy. He has never had a colonoscopy in the past. He denies abdominal pain or blood in the stool. He has no family history of colon cancer. [facility] Medical History Wears contact lenses Wears glasses Gastric reflux Non-smoker History of stress test Hyperlipemia Hypertension Home Medications ?Medication ?Instructions ?Recorded ?Last Taken ?Type atorvastatin 10 mg tablet 10 mg PO QHS 07/12/22 Unknown History lisinopril 20 mg tablet 20 mg PO QHS 07/12/22 Unknown History Allergy/AdvReac Type Severity Reaction Status Date / Time No Known Allergies Allergy Verified 07/23/24 08:22 Surgical History History of esophagogastroduodenoscopy (EGD) Hx of wisdom tooth extraction Social History household members: spouse current occupational status: employed Smoking Status: Never smoker Past Medical/Surgical History Planned Operation Planned Operative Procedure(s): Colonoscopy OA Previous Hospitalizations/Surgeries HX Hospitalizations: No Any Problems With Anesthesia: No You/Your Family Experience Fever (Hyperthermia) With Anes: No Cholinesterase deficiency: No Cardiovascular Hx Hypertension: Yes (CONTROLLED ON MED) Respiratory Hx Sleep Apnea: No Hx Respiratory Tract Infection/Cold (presently): No Do You Snore Loudly (louder than talking or can be heard): Yes Do You Often Feel Tired/ Fatigued/ Sleepy Dring Daytime?: No Has Anyone Observed You Stop Breathing During Sleep?: No Result (for STOP score): Positive Smoking Status: Never smoker Neurological Does patient have nerve stimulator: No Miscellaneous Recent Exposure to Contagious Disease: No Allergies No Known Allergies Allergy (Verified 07/23/24 08:22) Discharge Is Pt Admitted From a Usp, or a Intermediate: No After D/C, Where Do you Plan to Go: Return Home Vital Signs Vital Signs Vital Signs: 07/23/24 08:40 07/23/24 08:40 Temperature 97.7 F L Temperature Source Temporal Pulse Rate 79 Respiratory Rate 18 Respiratory Pattern Normal Blood Pressure 136/88 H Blood Pressure Mean 104 Blood Pressure Source Monitor Blood Pressure Position Semi-Fowlers Blood Pressure Location Left Arm Pulse Ox 99 Oxygen Delivery Method Room Air Weight Weight: 246 lb 11.156 oz Body Mass Index (BMI) 39.8 Physical Exam Const alert and oriented x3 HEENT normocephalic Eyes PERRL Resp normal respiratory effort and normal air movement Cardio regular rate and regular rhythm GI soft to palpation, non-tender and non-distended Extremity normal to inspection Assessment & Plan Assessment/Plan (1) Encounter for screening for malignant neoplasm of colon: PLAN: I explained endoscopy in detail to the patient. I explained the risks including but not limited to stroke or heart attack with anesthesia, perforation of the GI tract, bleeding, infection. I explained that any of these could necessitate further emergency surgery. The patient understands and all questions were answered sufficiently. The patient wishes to proceed with procedure. Gustavo Tejeda MD Pager: [facility] [address] [place] [address], [address] [place] [address] Office: Surgery Risks - Colonoscopy Risks Include but are not Limited To: Risks include but are not limited to: Bleeding, perforation requiring further surgery, inability to complete colonoscopy requiring barium enema.
--- NOTE | 2024-07-23 09:15 | COLBX_PTH ---
PATIENT: OLGA LIDIA IBARRA LOC: EN U#:[id number] AGE/SX: 43/M ROOM: RE07/23/[address]: Dr. Gustavo Tejeda MD : 1980 BED: DIS: 07/23/2024 SPEC #: [id number] RECD: 07/23/24 10:56 STATUS: MARY BONDS #: [id number] LION: 07/23/24 09:[address]: Gustavo Tejeda DEPT: SURGICAL PATHOLOGY RECD BY: Macario Clark ENTERED: 07/23/24 11:15 SP TYPE: COLON BX OTHR DR: Dr. Tay Medel MD Tissues: A - Rectum, NOS Procedures: Surgery Specimen Level IV HEADER OPERATION: Colonosocpy and polypectomy PRE-OP DIAGNOSIS: Screening TISSUE SUBMITTED: A- Rectal polyp MICROSCOPIC DIAGNOSIS A. Rectum, polyp, biopsy: Inflammatory polyp. MICROSCOPIC DESCRIPTION Slides are reviewed. GROSS DESCRIPTION A. Received in formalin in a container labeled with the patient's name, date of , and rectal polyp is a 0.5 x 0.4 x 0.4 cm zepeda-pink and polypoid piece of mucosal tissue with an attached 0.2 cm in length by 0.4 cm in diameter stalk (inked black). It is bisected to reveal zepeda-pink surfaces. Submitted entirely in A1. [facility] 07-23-2024 CPT:02002
--- NOTE | 2024-07-23 09:23 | PCM.POST.ANE ---
Anesthesia: Postop Eval I Current Vital Signs Temperature: 97.5 F Pulse Rate: 91 Blood Pressure: 119/81 Respiratory Rate: 16 Pulse Ox: 97 Oxygen Delivery Method: Room Air Assessment Airway patent: Yes Spontaneous unlabored respirations: Yes Mental status: Awake and Calm nausea: No Vomiting: No Anesthesia Complication: No Fluid Hydration Crystalloid volume administer (ml): 300 Total IV fluid infused: 300 Progress Note Anesthesia document: Postop Eval 1 completed: Yes
--- NOTE | 2024-07-23 09:24 | OP.COLON_ITS ---
Patient Name: Juan Cruz Procedure Date: 07/23/2024 9:06 AM Date of : 1980 Age: 43 Procedure: Colonoscopy Indications: Screening for colorectal malignant neoplasm Providers: Gustavo Tejeda MD Referring MD: Tay Medel MD Medicines: Propofol per Anesthesia Patient Profile: Last Colonoscopy: none. The patient's first colonoscopy is today. Complications: No immediate complications. Estimated blood loss: Minimal. Procedure: Pre-Anesthesia Assessment: - Prior to the procedure, a History and Physical was performed, and patient medications and allergies were reviewed. The patient's tolerance of previous anesthesia was also reviewed. The risks and benefits of the procedure and the sedation options and risks were discussed with the patient. All questions were answered, and informed consent was obtained. Prior Anticoagulants: The patient has taken no anticoagulant or antiplatelet agents. After reviewing the risks and benefits, the patient was deemed in satisfactory condition to undergo the procedure. After I obtained informed consent, the scope was passed under direct vision. Throughout the procedure, the patient's blood pressure, pulse, and oxygen saturations were monitored continuously. The pediatric colonoscope was introduced through the anus and advanced to the cecum, identified by appendiceal orifice and ileocecal valve. The colonoscopy was performed without difficulty. The patient tolerated the procedure well. The quality of the bowel preparation was good. Anatomical landmarks were photographed. Scope In: 9:12:56 AM Scope Withdrawal Time 0 hours 5 minutes 3 seconds Scope Out: 9:21:42 AM Total Procedure Duration Time 0 hours 8 minutes 46 seconds Findings: A small polyp was found in the rectum. The polyp was removed with a hot snare. Resection and retrieval were complete. The exam was otherwise without abnormality on direct and retroflexion views. Impression: - One small polyp in the rectum, removed with a hot snare. Resected and retrieved. - The examination was otherwise normal on direct and retroflexion views. Recommendation: - Discharge patient to home. - Resume previous diet. - Continue present medications. - Await pathology results. - Repeat colonoscopy in 5 years for surveillance. Procedure Code(s): --- Professional --- 34599, 33, Colonoscopy, flexible; with removal of tumor(s), polyp(s), or other lesion(s) by snare technique Diagnosis Code(s): --- Professional --- Z12.11, Encounter for screening for malignant neoplasm of colon D12.8, Benign neoplasm of rectum CPT copyright 2021 [employer]. All rights reserved. The codes documented in this report are preliminary and upon administration internship review may be revised to meet current compliance requirements. Gustavo Tejeda MD 07/23/2024 9:24:42 AM This report has been signed electronically. Number of Addenda: 0 Note Initiated On: 07/23/2024 9:06 AM
--- NOTE | 2024-07-23 09:25 | OP.CCLET_ITS ---
07/23/2024 Tay Medel MD [address] [place] [address] Re : Colonoscopy procedure for [facility][1]so Dear Dr. Medel This procedure was performed on Tuesday, July 23, 2024. My impressions and recommendations are as follows: Impressions : - One small polyp in the rectum, removed with a hot snare. Resected and retrieved. - The examination was otherwise normal on direct and retroflexion views. Recommendations : - Discharge patient to home. - Resume previous diet. - Continue present medications. - Await pathology results. - Repeat colonoscopy in 5 years for surveillance. My findings are described in the full procedure note, which is enclosed. If I can be of further assistance, please feel free to contact me at Doctor phone number(s): , Work: . Sincerely, Gustavo Tejeda MD 07/23/2024 9:24:42 AM This report has been signed electronically.
--- NOTE | 2024-07-23 10:09 | POSTOPAN2_ITS ---
Anesthesia Postop Eval I Sum Postop Eval Completion status Anesthesia document: Postop Eval 1 completed: Yes Anesthesia Postop Eval I Summary Anesthesia Postop Eval I Summary: Anesthesia Postop Eval I: Assessment Summary Airway patent Yes 07/23/24 09:32 SHORT PIECE HANDLER.SOBR Spontaneous unlabored Yes 07/23/24 09:32 SHORT PIECE HANDLER.SOBR respirations Mental status Awake,Calm 07/23/24 09:32 SHORT PIECE HANDLER.SOBR nausea No 07/23/24 09:32 SHORT PIECE HANDLER.SOBR Vomiting No 07/23/24 09:32 SHORT PIECE HANDLER.SOBR Anesthesia Postop Eval I: Fluid Summary Crystalloid volume administer 300 07/23/24 09:32 SHORT PIECE HANDLER.SOBR (ml) Colloids volume administered ( ml) Blood Product volume administered (ml) Total IV fluid infused 300 07/23/24 09:32 SHORT PIECE HANDLER.SOBR Anesthesia Postop Eval I: Summary Notes Anesthesia Complication No 07/23/24 09:32 SHORT PIECE HANDLER.SOBR Anesthesia Complication Comment: Post-operative progress note Anesthesia: Postop Eval II Evaluation Mental status: Awake Pain Level: 0 nausea: No Vomiting: No
--- NOTE | 2024-07-23 10:09 | PCM.POSTANE2 ---
Anesthesia Postop Eval I Sum Postop Eval Completion status Anesthesia document: Postop Eval 1 completed: Yes Anesthesia Postop Eval I Summary Anesthesia Postop Eval I Summary: Anesthesia Postop Eval I: Assessment Summary Airway patent Yes 07/23/24 09:32 ACCOUNTING COORDINATOR.SOBR Spontaneous unlabored Yes 07/23/24 09:32 ACCOUNTING COORDINATOR.SOBR respirations Mental status Awake,Calm 07/23/24 09:32 ACCOUNTING COORDINATOR.SOBR nausea No 07/23/24 09:32 ACCOUNTING COORDINATOR.SOBR Vomiting No 07/23/24 09:32 ACCOUNTING COORDINATOR.SOBR Anesthesia Postop Eval I: Fluid Summary Crystalloid volume administer 300 07/23/24 09:32 ACCOUNTING COORDINATOR.SOBR (ml) Colloids volume administered ( ml) Blood Product volume administered (ml) Total IV fluid infused 300 07/23/24 09:32 ACCOUNTING COORDINATOR.SOBR Anesthesia Postop Eval I: Summary Notes Anesthesia Complication No 07/23/24 09:32 ACCOUNTING COORDINATOR.SOBR Anesthesia Complication Comment: Post-operative progress note Anesthesia: Postop Eval II Evaluation Mental status: Awake Pain Level: 0 nausea: No Vomiting: No
== END 2024-07-23 09:53 | disposition home or self-care (01) ==
LOC: EN 08:16 → AC 08:18
PROVIDERS: PCP Family Medicine; Referring Provider Family Medicine; Visit Provider Surgery
PROC: 0DJD8ZZ Inspection of Lower Intestinal Tract, Via Natural or Artificial Opening Endoscopic (ICD-10-PCS; CPT 45378; principal; 2024-07-23 09:10)
DX: Z12.11 Encounter for screening for malignant neoplasm of colon (principal); K62.1 Rectal polyp; I10 Essential (primary) hypertension; E78.5 Hyperlipidemia, unspecified; Z79.899 Other long term (current) drug therapy
CPT/HCPCS: 45385; 88305

== ENCOUNTER → 2024-10-20 | Outpatient (CLI) | payer OTHER, SELFPAY ==
[2024-10-20 11:07] LABS: AST(SGOT) 24 U/L (<=37); Alanine Aminotransfer ALT/SGPT 39 U/L (<=46); Albumin, Serum 4.3 g/dL (3.5-5.0); Alkaline Phosphatase 79 U/L (40-129); Anion Gap 14 (5-15); BUN 13 mg/dL (4-19); BUN/Creat Ratio 16.9 RATIO (10-20); Calcium,Total 9.6 mg/dL (7.6-11.0); Carbon Dioxide 20.9 mmol/L (21.0-32.0); Chloride 104 mmol/L (98-108); Cholesterol 166 mg/dL (<=200); Globulin 3.5 g/dL (2.2-4.2); Glucose 104 mg/dL (70-99); Low Density Lipoprotein Calc. 103 mg/dL; Potassium 4.0 mmol/L (3.3-5.1); Triglycerides 150 mg/dL; Very Low Density Lipoprotein 30 mg/dL (5-40); cholesterol:hdl ratio screen 4.96
== END | disposition home or self-care (01) ==
PROVIDERS: PCP Family Medicine; Referring Provider Family Medicine; Visit Provider Family Medicine
DX: I10 Essential (primary) hypertension (principal); E78.00 Pure hypercholesterolemia, unspecified
CPT/HCPCS: 36415; 80053; 80061